=== PATIENT | female | born 1990 | race Caucasian/White ===

== ENCOUNTER 2020-08-19 07:59 | Emergency (ER) | payer MEDICAID, OTHER ==
[2020-08-19] MEDS ORDERED: Acetaminophen 325 MG Tab PO ONE (08:30)
--- NOTE | 2020-08-19 08:36 | EDM.PDOC ---
ED HPI GENERAL MEDICAL PROBLEM - General Chief Complaint: Back Pain or Injury Stated Complaint: BACK PAIN Time Seen by Provider: 08/19/20 08:00 - History of Present Illness INITIAL COMMENTS - FREE TEXT/NARRATIVE: Patient is a 29-year-old female she has a history of degenerative disc disease is presenting with acute right mid back pain that occurred while she was lifting heavy boxes yesterday. She states that she has been taking ibuprofen at home she is had a total of 2 doses of 800 mg. Her last dose was at 6 AM. She was trying to wait for the urgent care clinic to be open but her symptoms were too severe. There is no lower extremity weakness no symptoms in the legs no bowel or bladder incontinence. No cough no chest pain no abdominal pain. She had no fall. No head injury no neck pain. Symptoms are focused on the right side and they are not midline. Symptoms currently severe worsened with motion and ambulation. 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: Musculoskeletal History: Reports: None Neurological History: Reports: None Psychiatric History: Reports: None Endocrine/Metabolic History: Reports: None Hematologic History: Reports: None Immunologic History: Reports: None Oncologic (Cancer) History: Reports: None Dermatologic History: Reports: None - Infectious Disease History Infectious Disease History: Reports: Chicken Pox - Past Surgical History Head Surgeries/Procedures: Reports: None GI Surgical History: Reports: Appendectomy Social & Family History - Family History Family Medical History: No Pertinent Family History - Tobacco Use Tobacco Use Status *Q: Never Tobacco User Second Hand Smoke Exposure: No - Caffeine Use Caffeine Use: Reports: None - Recreational Drug Use Recreational Drug Use: No ED ROS GENERAL - Review of Systems Review Of Systems: See Below Free Text/Narrative/Comment: General: No fever. ENT: No sore throat. Neck: No neck stiffness. Respiratory: No shortness of breath. Cardiac: No chest pain. Gastrointestinal: No nausea, vomiting or abdominal pain. Musculoskeletal: Per HPI Neurologic: No headache. ED EXAM, GENERAL - Physical Exam Exam: See Below Free Text/Narrative:: General Appearance: No acute distress, appears comfortable Skin: No rash HEENT: Normocephalic/atraumatic, sclera anicteric, mucous membranes moist Neck: Normal range of motion Back: Right paraspinal tenderness T3-T6 with palpable spasm no midline tenderness step-off or deformity Musculoskeletal: No edema or tenderness Neurologic: Awake, alert, no obvious deficits, moving all extremities Psychiatric: Appropriate, cooperative Course - Vital Signs Last Recorded V/S: Last Vital Signs Temp 97.4 F 08/19/20 08:11 Pulse 70 08/19/20 08:11 Resp 18 08/19/20 08:11 BP 116/73 08/19/20 08:11 Pulse Ox 97 08/19/20 08:11 Departure - Departure Time of Disposition: 08:26 Disposition: Home, Self-Care 01 Condition: Good Clinical Impression: Back strain - Discharge Information *PRESCRIPTION DRUG MONITORING PROGRAM REVIEWED*: Yes *COPY OF PRESCRIPTION DRUG MONITORING REPORT IN PATIENT ABUNDIO: No Prescriptions: diazePAM [Valium] 5 mg PO TID PRN 3 Days #9 tablet PRN Reason: Muscle Spasm - Painful Instructions: Muscle Strain, [id number] Referrals: Rossy Emery DO [Primary Care Provider] - Additional Instructions: For the next 5 days please take 800 mg of ibuprofen every 8 hours with food. Because you last took ibuprofen at 6 AM your next dose should be at 2 PM. Please fill a Valium prescription. You can use this as a muscle relaxant. I recommend that you take a dose as soon as you get home. It is important that you do not combine the Valium with any alcohol or other medications beyond Tylenol or ibuprofen. Your symptoms should improve over the next several days. If your symptoms worsen you develop any other new symptoms that concern you please follow-up at the urgent care clinic or return to the ER. The following information is given to patients seen in the emergency department who are being discharged to home. This information is to outline your options for follow-up care. We provide all patients seen in our emergency department with a follow-up referral. The need for follow-up, as well as the timing and circumstances, are variable depending upon the specifics of your emergency department visit. If you don't have a primary care physician on staff, we will provide you with a referral. We always advise you to contact your personal physician following an emergency department visit to inform them of the circumstance of the visit and for follow-up with them and/or the need for any referrals to a consulting specialist. The emergency department will also refer you to a specialist when appropriate. This referral assures that you have the opportunity for follow-up care with a specialist. All of these measure are taken in an effort to provide you with optimal care, which includes your follow-up. Under all circumstances we always encourage you to contact your private physician who remains a resource for coordinating your care. When calling for follow-up care, please make the office aware that this follow-up is from your recent emergency room visit. If for any reason you are refused follow-up, please contact the [facility] Emergency Department at and asked to speak to the emergency department charge nurse. Sepsis Event Note (ED) - Evaluation Sepsis Screening Result: No Definite Risk - Focused Exam Vital Signs: Vital Signs Temp Pulse Resp BP Pulse Ox 08/19/20 08:11 97.4 F 70 18 116/73 97 - Assessment/Plan Assessment:: 29-year-old female presenting with signs and symptoms most consistent with right thoracic strain no signs of cord compression or cauda equina no midline symptoms no history of trauma necessitating any imaging. Patient is neurovascularly intact. Patient just took ibuprofen a few hours ago. She was given a dose of Tylenol here and a prescription for Valium was called into the pharmacy. Patient will take a turn of ibuprofen 3 times daily with food for the next 5 days Valium up to 3 times daily as needed for muscle spasms. Return precautions discussed and understood.
== END 2020-08-19 08:37 | disposition home or self-care (01) ==
LOC: MW.ED 07:59
DX: S29.012A Strain of muscle and tendon of back wall of thorax, initial encounter (principal); X50.0XXA Overexertion from strenuous movement or load, initial encounter
CPT/HCPCS: 99283; A9270

== ENCOUNTER 2021-03-09 11:31 | Emergency (ER) | payer MEDICAID ==
[2021-03-09] MEDS ORDERED: Ondansetron 4 MG Tab.DIS PO ONE (11:51)
[2021-03-09] MEDS ORDERED: Ketorolac 60 MG/2 ML SDV IM ONE (11:51)
== END 2021-03-09 12:20 | disposition home or self-care (01) ==
LOC: MW.ED 11:31
DX: U07.1 COVID-19 (principal)
CPT/HCPCS: 96372; 99283; A9270; J1885

== ENCOUNTER 2024-08-31 05:02 | Emergency (ER) | payer MEDICAID ==
[2024-08-31 05:28] LABS: APPEARANCE,URINE SLT CLOUDY; GLUCOSE,URINE NEGATIVE (NEGATIVE); OCCULT BLOOD,URINE LARGE (NEGATIVE)
[2024-08-31 05:29] LABS: BASOPHILS ABSOLUTE AUTO 0.05 K/uL (0.00-0.20); BASOPHILS PERCENT AUTO 0.6 % (0.0-1.0); EOSINOPHILS ABSOLUTE AUTO 0.01 K/uL (0.00-0.45); EOSINOPHILS PERCENT AUTO 0.1 % (0.0-6.0); IMMATURE GRAN ABSOLUTE AUTO 0.02 K/uL (0.00-0.05); IMMATURE GRAN PERCENT AUTO 0.2 % (0.0-0.4); LYMPHOCYTES ABSOLUTE AUTO 1.60 K/uL (1.00-4.80); LYMPHOCYTES PERCENT AUTO 17.8 % (24.0-44.0); MEAN PLATELET VOLUME 10.5 fL (9.4-12.3); MONOCYTES ABSOLUTE AUTO 0.81 K/uL (0.00-0.80); MONOCYTES PERCENT AUTO 9.0 % (0.0-8.0); NEUTROPHILS ABSOLUTE AUTO 6.52 K/uL (1.80-7.70); NEUTROPHILS PERCENT AUTO 72.3 % (41.0-71.0); NRBC ABSOLUTE 0.00 K/uL (0.00-0.02); NRBC PERCENT 0.0 /100WBC (0.0-0.2); PLATELET COUNT,PLT 211 K/uL (150-400); RED BLOOD CELL COUNT 4.40 M/uL (4.10-5.30); WHITE BLOOD CELL COUNT,WBC 9.01 K/uL (3.9-11.3)
[2024-08-31 05:33] LABS: EPITHELIAL CELLS,URINE FEW (NONE-FEW)
[2024-08-31] MEDS: Ondansetron 4 MG/2 ML SDV IVPUSH ONE (05:34)
[2024-08-31] MEDS: Ketorolac 30 MG/ML SDV IVPUSH ONE (05:35)
[2024-08-31 05:47] LABS: A/G RATIO 1.3 (0.9-1.6); ALANINE AMINOTRANSFERASE,ALT 24.0 IU/L (14-63); ASPARTATE AMNIOTRANSFERASE,AST 17.0 IU/L (15-37); BILIRUBIN TOTAL 0.4 mg/dL (0.2-1.0); BLOOD UREA NITROGEN,BUN 14.0 mg/dL (7.0-18.0); CARBON DIOXIDE,CO2 28.9 mmol/L (21.0-32.0); CHLORIDE,CL 102.0 mmol/L (98-107); CREATININE 1.1 mg/dL (0.6-1.0); EST CRCL DRUG DOSING (CG) 77.93 mL/min; GLUCOSE RANDOM 98.0 mg/dL (74-106); POTASSIUM,K 3.4 mmol/L (3.5-5.1); PROTEIN TOTAL,TP 6.8 g/dL (6.4-8.2); SODIUM,NA 138.0 mmol/L (136-145)
[2024-08-31 06:22] LABS: ESTIMATED GFR 68.0 mL/min (>60)
== END 2024-08-31 06:50 | disposition home or self-care (01) ==
LOC: MW.ED 05:02
DX: N10 Acute pyelonephritis (principal); Z79.899 Other long term (current) drug therapy
CPT/HCPCS: 36415; 74176; 80053; 81001; 81025; 83690; 85025; 96361; 96374; 96375; 99284; J1885; J2405; J7030; 99283; J1171